=== PATIENT | female | born 1960 | race Caucasian/White ===

== ENCOUNTER 2019-12-24 02:23 | Observation (INO) ==
[2019-12-24] MEDS ORDERED: ASPIRIN 81 MG CHEW PO STA (02:31)
[2019-12-24] MEDS ORDERED: NITROGLYCERIN SL 0.4 MG/TAB TAB SL STA ×2 (02:31→02:59)
--- NOTE | 2019-12-24 02:38 | Emergency Department Note ---
ED Provider Note Name: WINNIE CALVERT Age: 59 Sex: F Arrives Via: Family Vehicle Informant: Patient ED Provider: Shoaib Mccormack MD Chief Complaint: Chest pain Impression: Substernal Chest Pain Medical Decision Makin yr old female without PMH though father with OH 60yrs old arrives with substernal chest pain radiating to bilateral upper arms and back associated with shob, nausea, palpitations and lightheadedness. Initial EKG, CXR, Trop negative. Pain relieved with nitro. On discussing with patient she admits pain returned while here though was once again subsiding. While ACS risk seems low, the recurrance of chest pain is concerning given symptoms and I feel she will need cardiac rule out at this point. I do not feel this is consistent with PE, Dissection, etc. Prior Medical Record and Triage/Nursing Notes reviewed by Me Differentials:Cardiac ischemia, aortic dissection, pulmonary embolism, pneumothorax, pneumonia, pericarditis, myocarditis, esophageal rupture, GERD, cholecystitis, pancreatitis, musculoskeletal, as well as other pathologies. amongst other pathologies. Vital Signs: reviewed and remarkable for no significant abnormalities Interventions: Saline Lock, Asa 162mg PO, SLNTG x 2, Nitro Paste Labs:Reviewed and remarkable for wnl cbc, bmp, trp Imaging:X ray results are stated below per my interpretation: Chest: 1 view: No infiltrate, no effusion, normal cardiac border. EKG:Per My Interpretation: Indication Chest Pain: NSR 91 bpm, qtc 452. No Ectopy. No Ischemia. Compared to EKG 12/24/19, no significant changes. Cardiac Monitoring: An Order was placed for continuous cardiac monitoring. The monitor shows a rate of 80 with a normal sinus rhythm. Consults:Dr Willam KWAN Hospitalist Plan: Disposition:Hospitalization. Condition: Good Blood pressure:Normal.No Referral necessary History of Present Illness:59 / Female arrives for evaluation of chest pain. Patient notes feeling significant fatigue throughout evening yesterday to point of exhaustion. She went to bed and then awoke about 1:30am with chest pain radiating to her back and bilateral upper arms. Associated with shortness of breath, nausea, palpitations and lightheaded. Admits anxiety regarding this as well. Denies syncope, vomiting, headache, abdominal pain, neck pain, fevers, chills, runny nose, leg pain, calf swelling, rashes nor other symptoms. Currently pain is much less and she has mild chest pain without other symptoms nor radiation. She used ASA 162mg earlier in day but no medications prior to arrival. Exertion made worse, rest made better. Denies trauma, injuries, falls. no recent travel, surgeries, nor sick contacts. Father with CAD at 60yrs requiring B[place]. ROS: See above HPI for pertinent positives & negatives. A total of 10 systems reviewed and were otherwise negative. Past Medical History:None Past Surgical History:Appendectomy Family History:Father CAD Social History:Employed, Non smoker Home Medications:None Allergies:Penicillin, bees Vitals:Blood Pressure: 137/79, Pulse 88, RR 18, T 6.7C, O2 9% on RA Physical Exam: GENERAL: Patient is anxious appearing and in mild distress. EYES: No scleral icterus, unremarkable pupils. ENT: Mucous membranes moist, no nasal congestion. NECK: No masses appreciated, nomeningismus, trachea is midline. RESPIRATORY: No dyspnea. Clear to auscultation and equal bilaterally. No wheeze, no rhonchi. CARDIOVASCULAR: Regular rate and rhythm.No murmurs, rubs, gallops appreciated. GASTROINTESTINAL: Abdomen soft, non-tender, no peritonitis.Bowel sounds positive.No masses appreciated. BACK: No midline tenderness, no CVA tenderness EXTREMITIES: Normal motion all extremities, no cyanosis, no edema. NEUROLOGIC: Alert and oriented, no acute motor or sensory deficits, no focal weakness, cranial nerves grossly intact. SKIN: No rash, no jaundice, no diaphoresis. PSYCH: Appropriate GCS: 15 ED Course: Times/Reassessments: Patient given nitro with resolution of symptoms, but then they returned and resolved again. Given waxing/waning symptoms hospitalist consulted. Shoaib Mccormack MD Impression & Plan Substernal chest pain Past Med/Surg History Social History Preferred Language: Armenian Feels Safe at Home: Yes Smoking Status: Never smoker Results & Data Vital Signs Vital Signs - 24 hr 12/24/19 02:32 12/24/19 02:50 12/24/19 02:52 Temperature 36.7 C Temperature Source Oral Pulse Rate 88 Pulse Rate [Bilateral Apical] 96 H 92 H Pulse Rhythm Regular Pulse Strength Normal Respiratory Rate 18 20 20 Respiratory Effort / Characteristics Non-Labored Non-Labored Respiratory Depth Normal Normal Respiratory Pattern Regular Blood Pressure 137/79 Blood Pressure [Left Arm] 130/66 103/68 Blood Pressure Mean 98 Blood Pressure Mean [Left Arm] 87 79 Blood Pressure Position Lying Pulse Oximetry 99 96 96 Oxygen Delivery Method Room Air Room Air Sepsis Recent Fever Within 48 Hours No Sepsis New/Unexplained Change in Mental Status No Sepsis Action Taken by Nursing No Action Required 12/24/19 03:10 12/24/19 04:08 12/24/19 05:02 Temperature Temperature Source Pulse Rate Pulse Rate [Bilateral Apical] 95 H 91 H 78 Pulse Rhythm Pulse Strength Respiratory Rate 20 20 18 Respiratory Effort / Characteristics Respiratory Depth Respiratory Pattern Blood Pressure Blood Pressure [Left Arm] 108/54 L 105/72 118/71 Blood Pressure Mean Blood Pressure Mean [Left Arm] 72 83 86 Blood Pressure Position Pulse Oximetry 96 97 96 Oxygen Delivery Method Room Air Room Air Sepsis Recent Fever Within 48 Hours Sepsis New/Unexplained Change in Mental Status Sepsis Action Taken by Nursing 12/24/19 05:38 Temperature Temperature Source Pulse Rate Pulse Rate [Bilateral Apical] 79 Pulse Rhythm Pulse Strength Respiratory Rate 18 Respiratory Effort / Characteristics Respiratory Depth Respiratory Pattern Blood Pressure Blood Pressure [Left Arm] 98/64 L Blood Pressure Mean Blood Pressure Mean [Left Arm] 75 Blood Pressure Position Pulse Oximetry 95 Oxygen Delivery Method Room Air Sepsis Recent Fever Within 48 Hours Sepsis New/Unexplained Change in Mental Status Sepsis Action Taken by Nursing Laboratory Data Result diagrams: 12/24/19 02:38 12/24/19 02:38 Lab Results 12/24/19 12/24/19 Range/Units 02:38 02:38 WBC 6.62 (4.8-10.8) K/uL RBC 4.52 (4.2-5.4) M/uL Hgb 14.8 (12.0-16.0) g/dL Hct 43.8 (37-47) % MCV 96.9 (80-100) fL MCH 32.7 (25-34) pg MCHC 33.8 (32-36) g/dL RDW Std Deviation 44.0 (36.4-46.3) fL RDW Coeff of Nu 12.5 (11.5-14.5) % Plt Count 182 (130-400) K/uL MPV 11.0 H (7.4-10.4) fL Immature Gran % (Auto) 0.3 % Neut % (Auto) 44.7 % Lymph % (Auto) 45.3 % [place] % (Auto) 6.2 % Eos % (Auto) 3.2 % Baso % (Auto) 0.3 % Immature Gran # (Auto) 0.02 (0.00-0.02) K/uL Neut # (Auto) 2.96 (1.4-6.5) K/uL Lymph # (Auto) 3.00 (1.2-3.4) K/uL [place] # (Auto) 0.41 (0.11-0.59) K/uL Eos # (Auto) 0.21 (0-0.5) K/uL Baso # (Auto) 0.02 (0-0.2) K/uL Sodium 141 (136-145) mmol/L Potassium 4.0 (3.5-5.1) mmol/L Chloride 108 H (98-107) mmol/L Carbon Dioxide 25 (21-32) mmol/L Anion Gap 8.0 (3-11) BUN 18 (7-18) mg/dl Creatinine 1.00 (0.6-1.2) mg/dl Est Cr Clr Drug Dosing 58.4 ml/min Est GFR ( Amer) 71.4 Est GFR (Non-Af Amer) 61.6 BUN/Creatinine Ratio 17.9 (10-20) Glucose 103 H (70-99) mg/dl Calcium 9.0 (8.5-10.1) mg/dl Troponin I < 0.015 (0-0.045) ng/ml Specimen Hemolysis Administered Medications Discontinued Medications Aspirin (Aspirin Chew) 162 mg PO NOW STA Stop: 12/24/19 02:32 Last Admin: 12/24/19 02:46 Dose: 162 mg Documented by: [id number] Nitroglycerin (Nitrostat) 0.4 mg SL NOW STA Stop: 12/24/19 02:32 Last Admin: 12/24/19 02:46 Dose: 0.4 mg Documented by: [id number] Nitroglycerin (Nitrostat) 0.4 mg SL NOW STA Stop: 12/24/19 03:00 Last Admin: 12/24/19 03:05 Dose: 0.4 mg Documented by: [id number] Nitroglycerin (Nitro-Bid 2%) 1 inch EXT NOW ONE Stop: 12/24/19 03:41 Last Admin: 12/24/19 04:02 Dose: 1 inch Documented by: [id number] Discharge Plan Visit Data Chief Complaint: Chest Pain Stated Complaint: CHEST PAIN, ARM PAIN ED Provider: Shoaib Mccormack Discharge Problem: Substernal chest pain Discharge Instructions Interventions: ED Discharge Assessment Last Done: 12/24/19 05:33 Forms Stand Alone Forms: [employer] Prescriptions Prescriptions: No Action melatonin 3 mg Tablet 9 - 12 mg PO HS RF: 0 Referrals Referrals: Yanelis Huang PA-C [Primary Care Provider] -
[2019-12-24 02:49] LABS: Basophils # (auto) 0.02 K/uL (0-0.2); Basophils % (auto) 0.3 %; Eosinophils # (auto) 0.21 K/uL (0-0.5); Eosinophils % (auto) 3.2 %; Hematocrit (blood only) 43.8 % (37-47); Hemoglobin 14.8 g/dL (12.0-16.0); Immature Granulocytes # (auto) 0.02 K/uL (0.00-0.02); Immature Granulocytes % (auto) 0.3 %; Lymphocytes % (auto) 45.3 %; Mean Corpuscular Hemoglobin 32.7 pg (25-34); Mean Corpuscular Hgb Conc 33.8 g/dL (32-36); Mean Corpuscular Volume 96.9 fL (80-100); Monocytes # (auto) 0.41 K/uL (0.11-0.59); Monocytes % (auto) 6.2 %; Neutrophils # (auto) 2.96 K/uL (1.4-6.5); Neutrophils % (auto) 44.7 %; Platelet Count 182 K/uL (130-400); RDW Coefficient of Variation 12.5 % (11.5-14.5); Red Blood Count 4.52 M/uL (4.2-5.4); White Blood Count 6.62 K/uL (4.8-10.8)
[2019-12-24 03:27] LABS: BUN Creatinine Ratio 17.9 (10-20); Blood Urea Nitrogen 18 mg/dl (7-18); Carbon Dioxide 25 mmol/L (21-32); Chloride 108 mmol/L (98-107); Creatinine Clr Calc Pharmacy 58.4 ml/min; Est GFR (African American) 71.4; Est GFR (Non-African American) 61.6; Glucose 103 mg/dl (70-99); Sodium 141 mmol/L (136-145); Troponin I < 0.015 ng/ml (0-0.045)
[2019-12-24] MEDS ORDERED: NITROGLYCERIN 2% OINTMENT 30GM TUBE EXT ONE (03:40)
--- NOTE | 2019-12-24 04:19 | History & Physical Report ---
Date of Service December 24, 2019 Assessment & Plan (1) Chest pain: 59 yo F with no significant PMH presents to [facility] with concerns of CP admitted for chest pain r/o. Chest Pain -admit to telemetry -EKG on admission: NSR. No acute ischemia. Repeat EKG daily -initial trop neg. Will repeat x2 q6h -morphine and nitroglycerin ordered prn for chest pain -ECHO pending -pt may benefit from a stress ECHO as an outpt -ASA initiated -A1C and Lipid Panel in AM -likely an anxiety component FEN/GI: HH Diet DVT Prophylaxis: Low Risk per Admission Calc. SCD's, Ambulation. Full Code Dispo: Med Tele. Anticipate d/c later in day. History of Present Illness Chief Complaint: cp Primary Care Provider: Yanelis Huang PA-C 59 yo F with no significant PMH presents to [facility] with concerns of substernal chest pain. Pt notes that earlier in day around noon she felt very fatigued, which is unusual for her. She went for a hike with her dogs and came back home with continued fatigue and leg weakness/pain. She is normally able to do this hike without issue. No CP during this hike however. Pt took 162 mg ASA prior to going to bed around 7PM because she thought it would relieve her leg pain. Pt woke up around 1AM with CP. Described as intermittent, ranging from dull to sharp pain. 5/10 at worst. Radiation into b/l arms. Also notes back pain, but not radiating pain. Pain exacerbated by exertion, alleviated with rest. Associated nausea, SOB, palpitations, lightheadedness. Pt denies diaphoresis, syncope or near syncope, edema, F/N/V/D, chills, cough, [place], recent travel, abd pain, urinary sxs. Of note, pt does admit to a lot of stress over COVID situation in regards to how long they will have to be isolated, finances, sh opping, etc. Believes it is contributing to her current sxs. Additional weight gain of 15lbs this winter due to inactivity. Pt with no other acute concerns or complaints. EKG: NSR CXR: No acute process Pertinent Labs: Trop neg. Otherwise unremarkable. ER Course: ASA 162 mg, Nitro SL x2, Nitro Patch Family Hx: Father- CAD w/ CABG at ~60y/o Social Hx: Denies Tobacco use. Alcohol- 6oz hard liquor/day, wine. No illicit drug use Allergies Allergy/AdvReac Type Severity Reaction Status Date / Time bee venom protein (honey bee) Allergy Severe SWELLING Unverified 12/24/19 03:14 Penicillins Allergy Unknown Unknown Unverified 12/24/19 03:14 Home Medications Home Medications Medication Instructions Recorded Confirmed Type melatonin 9 - 12 mg PO HS 12/24/19 12/24/19 History pantoprazole 40 mg PO DAILY #30 tab 12/24/19 Rx sucralfate [Carafate] 1 gm PO AC 7 Days #21 tab 12/24/19 Rx Past Med/Surg History Social History Preferred Language: Singaporean Beliefs That Will Affect Care: None Current Living Situation: Spouse Feels Safe at Home: Yes Smoking Status: Never smoker Hx Alcohol Use: No Hx Substance Use: No Review of Systems Review of Systems: All systems reviewed & are unremarkable except as noted in HPI & below Physical Exam Constitutional: WD/WN, vitals as above Eyes: PERRL, conjunctivae normal, anicteric sclerae ENMT: external ear and nose normal, oropharynx normal Respiratory: normal respiratory effort, lungs clear to auscultation Cardiovascular: RRR, no murmur, no edema Gastrointestinal (Abdomen): normal bowel sounds, soft, nontender, no hepatosplenomegaly Skin: no rashes, warm and dry Psychiatric: Orientation: alert and oriented x 3 Affect: + anxious affect Results & Data Vital Signs (Past 12 Hours) Vital Signs Temp Pulse Pulse Resp BP BP Pulse Ox 12/24/19 04:08 91 H 20 105/72 97 12/24/19 03:10 95 H 20 108/54 L 96 12/24/19 02:52 92 H 20 103/68 96 12/24/19 02:50 96 H 20 130/66 96 12/24/19 02:32 36.7 C 88 18 137/79 99 Laboratory Results Laboratory Results - last 24 hr 12/24/19 12/24/19 02:38 02:38 WBC 6.62 RBC 4.52 Hgb 14.8 Hct 43.8 MCV 96.9 MCH 32.7 MCHC 33.8 RDW Std Deviation 44.0 RDW Coeff of Nu 12.5 Plt Count 182 MPV 11.0 H Immature Gran % (Auto) 0.3 Neut % (Auto) 44.7 Lymph % (Auto) 45.3 [place] % (Auto) 6.2 Eos % (Auto) 3.2 Baso % (Auto) 0.3 Immature Gran # (Auto) 0.02 Neut # (Auto) 2.96 Lymph # (Auto) 3.00 [place] # (Auto) 0.41 Eos # (Auto) 0.21 Baso # (Auto) 0.02 Sodium 141 Potassium 4.0 Chloride 108 H Carbon Dioxide 25 Anion Gap 8.0 BUN 18 Creatinine 1.00 Est Cr Clr Drug Dosing 58.4 Est GFR ( Amer) 71.4 Est GFR (Non-Af Amer) 61.6 BUN/Creatinine Ratio 17.9 Glucose 103 H Calcium 9.0 Troponin I < 0.015 Specimen Hemolysis Code Status & VTE Plan Code Status FULL Supervising Physician Co-Signing Physician Notes Attending addendum: I have physically seen this patient, have supervised the medical residents activities, and agree with the H&P unless as otherwise noted. Assessment and Plan: Chest pain- The patient will be admitted to telemetry for serial cardiac enzymes, serial EKG's, cardiac rhythm monitoring and a 2-D echocardiogram with Dopplers. Aspirin 81 mg daily. Check hemoglobin A1c and fasting lipid panel. If above work-up is negative, patient will need to get a stress test during admission or shortly after discharge. Remainder of orders and notations as noted. Resident Activity Tracking Resident Involvement: Resident Care Provided Care Provided: Adult [facility] Medicine
[2019-12-24] MEDS ORDERED: ALUMINUM/MAGNESIUM SUSP 30 ML UDC PO PRN (06:05)
[2019-12-24] MEDS ORDERED: ONDANSETRON INJ 2 MG/ML 2 ML VIAL IV PRN (06:05)
[2019-12-24] MEDS ORDERED: ACETAMINOPHEN 325 MG TAB PO PRN (06:05)
[2019-12-24] MEDS ORDERED: NITROGLYCERIN SL 0.4 MG/TAB TAB SL PRN (06:05)
[2019-12-24] MEDS ORDERED: MoRPHine SULFATE 2 MG/ML CARP IV PRN (06:05)
--- NOTE | 2019-12-24 07:05 | XRay Report ---
XR chest 1V portable CLINICAL HISTORY: 59 years-old Female presenting with CP. TECHNIQUE: Portable upright AP view of the chest was obtained. COMPARISON: 10/17/2015. FINDINGS: Cardiomediastinal silhouette normal. No focal opacity. No large effusion or pneumothorax. Osseous str uctures normal. Upper abdomen normal. IMPRESSION: 1. No acute cardiopulmonary disease. ACT 112: Negative or not required by law. Electronically signed by: Kenny Baker M.D. 12/24/2019 7:04 AM
--- NOTE | 2019-12-24 10:26 | XCELERA ---
[id number] [id number]
[2019-12-24] MEDS ORDERED: OPTIRAY 320 125ml IV PRN (10:36)
--- NOTE | 2019-12-24 11:34 | CT Scan Report ---
CHEST CTA for AORTIC DISSECTION CT DOSE: 904.12 mGy.cm HISTORY: chest pain radiating to back/arms TECHNIQUE: Multiaxial CT images of the chest were performed both before and after the intravenous adm inistration of contrast to evaluate the aorta. Maximal intensity projection images were also obtained . A dose lowering technique was utilized adhering to the principles of ALARA. COMPARISON STUDY: None. FINDINGS: Noncontrast imaging through the chest shows no evidence for an intramural hematoma within t he thoracic aorta. Normal caliber thoracic aorta with no evidence for dissection. The heart is normal in size. No evidence for pulmonary embolus. Cholelithiasis. The visualized liver and adrenal glands are unremarkable. Multiple punctate calcified granuloma seen within the spleen. Normal esophagus. No mediastinal or hilar lymphadenopathy. A few calcified right hilar and subcarinal lymph nodes are note d. No suspicious lytic are blastic osseous lesions. No pneumothorax. The central airways are patent. A 4 mm subpleural nodule within the left lower lobe in image 148. A few patchy groundglass density se en within the lung bases consistent with mild dependent change. Otherwise, no focal lung consolidatio ns to suggest pneumonia. There are 2 subcentimeter indeterminate pulmonary nodules seen within the ri ght lower lobe on images 146 and 147. These measure 4 mm. IMPRESSION: 1. No evidence for an aortic dissection. 2. Cholelithiasis. 3. Evidence for prior granulomatous disease. 4. A total of 3 subcentimeter indeterminate pulmonary nodules as described above measuring up to 4 mm . Please refer to the chart below for recommended follow-up. Please refer to below summary of Fleischner criteria recommendations for follow-up of incidental CT n odules (Ricky Delcid, Guidelines for management of small pulmonary nodules detected on CT scans: A sta tement from the Fleischner Society, Radiology 237: [phone].) SOLID NODULES Solitary nodule size: <6 mm * Low risk patients: no follow-up needed * high risk patients: optional CT at 12 months Solitary nodule size: 6-8 mm * Low risk patients: follow-up at 6-12 months, then consider further follow-up at 18-24 months * high risk patients: initial follow-up CT at 6-12 months and then at 18-24 months if no change Solitary nodule size: >8 mm * either low or high risk patients - consider follow-up CT at 3 months, and/or CT-PET, and/or biopsy Multiple nodules size: <6 mm * Low risk patients: no routine follow-up * high risk patients: optional CT at 12 months Multiple nodules size: 6-8 mm * Low risk patients: follow-up at 3-6 months, then consider further follow-up at 18-24 months * high risk patients: follow-up at 3-6 months, then at 18-24 months if no change Multiple nodules size: >8 mm * Low risk patients: follow-up at 3-6 months, then consider further follow-up at 18-24 months * high risk patients: follow-up at 3-6 months, then at 18-24 months if no change Note: newly detected indeterminate nodule in persons 35 years of age or older. * Low risk patients: minimal or absent history of smoking and/or other known risk factors * high risk patients: history of smoking or of other known risk factors (e.g. first degree relative with lung cancer, or exposure to asbestos, radon, uranium) * if a nodule up to 8 mm is partly solid or is ground glass further follow-up is required after 24 m onths to exclude possible slow growing adenocarcinoma (SHANNAN) SUBSOLID NODULES Solitary pure ground-glass nodule * nodule size <6 mm - no CT follow-up required * nodule size >=6 mm - follow-up CT at 6-12 months, then every 2 years until 5 years Solitary part-solid nodule * nodule size <6 mm - no CT follow-up required * nodule size >=6 mm - follow-up CT at 3-6 months. If unchanged, and solid component remains <6 mm, then annual follow-up for 5 years Multiple subsolid nodules * nodule size <6 mm - follow-up CT at 3-6 months, consider further follow-up at 2 and 4 years if sta ble * nodule size >=6 mm - follow-up CT at 3-6 months, subsequent management based on the most suspiciou s nodule(s) ACT 112: Negative or not required by law. Electronically signed by: Joe Bello M.D. 12/24/2019 11:32 AM
[2019-12-24] MEDS ORDERED: KETOROLAC 30 MG/ML VIAL IV ONE (11:45)
[2019-12-24] MEDS ORDERED: SUCRALFATE 1 GM/10 ML UDC PO STA (13:55)
--- NOTE | 2019-12-24 16:23 | Electrocardiogram Report ---
Test Reason : Blood Pressure : / mmHG Vent. Rate : 091 BPM Atrial Rate : 091 BPM P-R Int : 144 ms QRS Dur : 084 ms QT Int : 368 ms P-R-T Axes : 067 010 051 degrees QTc Int : 452 ms Normal sinus rhythm Low voltage QRS Borderline ECG When compared with ECG of 17-OCT-2015 08:54, No significant change was found Confirmed by Kirill Perez ([id number]) on 12/24/2019 4:22:21 PM Referred By: REFERRED SELF Confirmed By:Sanya Perez
--- NOTE | 2019-12-24 16:28 | Electrocardiogram Report ---
Test Reason : Blood Pressure : / mmHG Vent. Rate : 079 BPM Atrial Rate : 079 BPM P-R Int : 132 ms QRS Dur : 076 ms QT Int : 398 ms P-R-T Axes : 008 014 047 degrees QTc Int : 456 ms Normal sinus rhythm Normal ECG When compared with ECG of 24-DEC-2019 02:27, (unconfirmed) No significant change was found Confirmed by Kirill Perez ([id number]) on 12/24/2019 4:27:51 PM Referred By: REFERRED SELF Confirmed By:Sanya Perez
--- NOTE | 2019-12-24 17:15 | Discharge Summary ---
Date of Service date of admission - December 24, 2019 date of discharge - December 24, 2019 Admission HPI Per Admitting Provider 59 yo F with no significant PMH presents to [facility] with concerns of substernal chest pain. Pt notes that earlier in day around noon she felt very fatigued, which is unusual for her. She went for a hike with her dogs and came back home with continued fatigue and leg weakness/pain. She is normally able to do this hike without issue. No CP during this hike however. Pt took 162 mg ASA prior to going to bed around 7PM because she thought it would relieve her leg pain. Pt woke up around 1AM with CP. Described as intermittent, ranging from dull to sharp pain. 5/10 at worst. Radiation into b/l arms. Also notes back pain, but not radiating pain. Pain exacerbated by exertion, alleviated with rest. Associated nausea, SOB, palpitations, lightheadedness. Pt denies diaphoresis, syncope or near syncope, edema, F/N/V/D, chills, cough, [place], recent travel, abd pain, urinary sxs. Of note, pt does admit to a lot of stress over COVID situation in regards to how long they will have to be isolated, finances, shopping, etc. Believes it is contributing to her current sxs. Additional weight gain of 15lbs this winter due to inactivity. Pt with no other acute concerns or complaints. EKG: NSR CXR: No acute process Pertinent Labs: Trop neg. Otherwise unremarkable. ER Course: ASA 162 mg, Nitro SL x2, Nitro Patch Family Hx: Father- CAD w/ CABG at ~60y/o Social Hx: Denies Tobacco use. Alcohol- 6oz hard liquor/day, wine. No illicit drug use Principal Diagnosis chest pain, ACS ruled out Discharge Exam Constitutional well developed and well nourished; no acute distress ENMT external ear and nose normal, oropharynx normal Respiratory normal respiratory effort, lungs clear to auscultation Cardiovascular Rate/Rhythm: regular rate and regular rhythm Heart Sounds: normal S1 and normal S2; no murmur Vessels: posterior tibial pulses present and dorsalis pedis pulses present; no JVD Extremities: no edema Gastrointestinal (Abdomen) normal bowel sounds, soft, nontender, no hepatosplenomegaly Psychiatric Orientation: alert and oriented x 3 Affect: + anxious affect Discharge Data Allergies Allergy/AdvReac Type Severity Reaction Status Date / Time bee venom protein (honey bee) Allergy Severe SWELLING Unverified 12/24/19 03:14 Penicillins Allergy Unknown Unknown Unverified 12/24/19 03:14 Consultations Consult Lung Nodule Program Ordered Studies CT angio chest dissec wo/w con - IMPRESSION: 1. No evidence for an aortic dissection. 2. Cholelithiasis. 3. Evidence for prior granulomatous disease. 4. A total of 3 subcentimeter indeterminate pulmonary nodules as described above measuring up to 4 mm. Please refer to the chart below for recommended follow-up. Echocardiogram - normal EF (55-60%), normal valve function, normal wall motion grade 1 diastolic dysfunction Hospital Course (1) Chest pain: Patient ruled out for acute VA with 3 negative troponin levels. Telemetry was normal. Echocardiogram was normal. CTA chest, dissection protocol, was negative for PE and aortic dissection. Even after admission she continued with low-grade, ongoing chest discomfort. She had no relief of her pain to nitroglycerin or NSAIDs. She had partial relief of symptoms with H2 lis & carafate. Symptoms were worst after eating. It is possible that her symptoms were due to significant gastroesophageal reflux. Although she was incidentally found to have gallstones on imaging her symptoms were not consistent with biliary colic. Recommendations at discharge - 1. carafate x 1 week 2. PPI x 1 month 3. reflux precautions 4. f/u with PCP; strongly consider outpatient GI referral (2) Pulmonary nodule: Incidentally seen on CTA chest Referral to [facility] pulmonary nodule program Total Time Total Time Spent Total Time Spent (In Minutes): 45 Total Time Includes: Examination of the Patient, Discharge Planning and Medication Reconciliation Discharge Plan Discharge Items Patient Disposition: Home - Self-Care Reason For Visit: CHEST PAIN Discharge Diagnosis: chest pain - heart attack ruled out. No evidence of blood clots of the lungs or aortic dissection. No evidence of fluid or pneumonia in the lungs. Pain due to severe reflux ? Other? Activity: Resume your previous activity Non-emergency contact: Primary Care Provider Call non-emergency contact if: you have any medication questions, your symptoms worsen, your pain is not controlled, your pain is worsening, your pain is unusual for you, your pain is concerning for you and you have a fever Follow-up/Referrals: Yanelis Huang PA-C [Primary Care Provider] - Diet: Regular Addtl Attending Provider Instructions: You were hospitalized for chest discomfort, bilateral arm pain and back discomfort. Your heart testing was normal - no evidence of heart attack, abnormal heart rhythms on heart monitoring, and your echocardiogram was also normal with good heart function. You also underwent a CAT scan of the lungs showing NO evidence of blood clots, pneumonia, or aortic dissection. The exact cause of your chest symptoms is not fully certain. Possibilities include severe reflux (gastroesophageal reflux disease/heartburn) vs gallstones related (your CAT scan showed gallstones) vs other cause. At this time I would recommend -- 1. pantoprazole 40mg once daily every morning upon awakening. Take for 30 days. 2. carafate 1gm 30 minutes before meals for 1 week. 3. avoid spicy foods, fried foods, excessive caffeinated beverages, etc. If your chest symptoms worsen please speak to your family doctor about a GI (gastroenterology) referral. You could potentially need an upper endoscopy or an ultrasound of your gallbladder. Furthermore, if the symptoms persist and it is NOT felt to be gastrointestinal you MAY NEED AN OUTPATIENT STRESS TEST. Please stay in close contact with your family doctor about these symptoms. Finally, as an incidental finding, you have very tiny pulmonary nodules in the lungs. The vast majority of these (well over 95%) are BENIGN and do not require any treatment. Our [facility] Pulmonary Nodule Coordinator will be in touch with you regarding this. Follow-up - Please call your family doctor's office to consider obtaining a GI referral Return to [facility] if - * you have ongoing chest pains despite taking the prescribed medications for possible heartburn * you have shortness of breath * you have palpitations/racing heart * you have fever over 100.5 degrees * any other concerns Pending Studies at Discharge: No Stand-Alone Forms: My [facility] [employer], Smoking Cessation Medications and DC Order Prescriptions: New pantoprazole 40 mg tablet,delayed release (DR/EC) 40 mg PO DAILY Qty: 30 RF: 0 sucralfate [Carafate] 1 gram tablet 1 gm PO AC 7 Days Qty: 21 RF: 0 Continued melatonin 3 mg Tablet 9 - 12 mg PO HS RF: 0 Discharge Orders: Discharge Order (Routine); Ordered 12/24/19 Ordered By: Albin Preston Admission Data Admit Date/Time: 12/24/19 05:18 Attending Provider: Albin Preston Admit Provider: Alec Lafleur Primary Care Provider: Yanelis Huang Other Interventions: Discharge Summary Assessment (RN) Last Done: 12/24/19 17:41 DC Date/Time DO NOT enter until pt leaves facility: 12/24/19 18:15 Coding Level of Care Code 98272 OBS Care - Discharge Diagnoses Chest pain R07.9 Pulmonary nodule R91.1
--- NOTE | 2019-12-25 23:21 | Billing Data ---
Date of Service December 25, 2019 Coding Level of Care Code 19587 OBS Care - Level 2
== END 2019-12-24 18:15 | disposition home or self-care (01) ==
LOC: ED 02:23 → 2W 02:23 → SUATTDRO 05:18 → 2W 05:33
DX: Z82.49 Family history of ischemic heart disease and other diseases of the circulatory system; Z88.0 Allergy status to penicillin; R07.9 Chest pain, unspecified; Z91.030 Bee allergy status